=== PATIENT | male | born 1970 | race Two or more races ===

== ENCOUNTER 2022-05-12 02:56 | Emergency (ER) | payer MEDICAID, OTHER ==
[~2022-05-12] VITALS: Ht 165.1 cm; Wt 97.3 kg
[2022-05-12 04:02] VITALS: BP 151/95
[2022-05-12] MEDS ORDERED: AMOX-277 PO (04:27)
== END 2022-05-12 04:50 | disposition home or self-care (01) ==
LOC: ER 02:56
DX: S61.451A Open bite of right hand, initial encounter (principal); S71.151A Open bite, right thigh, initial encounter; I10 Essential (primary) hypertension; Z79.2 Long term (current) use of antibiotics; W54.0XXA Bitten by dog, initial encounter; Y93.89 Activity, other specified; Y92.89 Other specified places as the place of occurrence of the external cause; Y99.8 Other external cause status

== ENCOUNTER 2022-07-31 18:57 | Inpatient (IN) | payer MEDICAID ==
[~2022-07-31] VITALS: Ht 165.1 cm; Wt 96.8 kg
[~2022-07-31 18:57] MED LIST: AMOX-277 PO
[2022-07-31 19:48] VITALS: BP 154/101
[2022-07-31 20:07] LABS: Basophils # (auto) 0.1 10 ^3/uL (0-0.2); Basophils % (auto) 0.6 % (0.0-2.0); Eosinophils # (auto) 0.2 10 ^3/uL (0-0.8); Hematocrit 48.1 % (41.0-53.0); Hemoglobin 16.3 g/dL (13.5-17.5); Lymphocytes # (auto) 1.6 10 ^3/uL (0.4-5.4); Mean Corpuscular Hemoglobin 28.1 pg (28.0-32.0); Mean Corpuscular Volume 82.7 fL (80.0-100.0); Monocytes # (auto) 0.9 10 ^3/uL (0-1.3); Monocytes % (auto) 10.3 % (0.0-12.0); Neutrophils # (auto) 5.6 10 ^3/uL (1.6-8.6); Neutrophils % (auto) 68.1 % (37.0-80.0); Nucleated Red Blood Cells % 0.5 %; Red Blood Cells 5.81 10^6/uL (4.5-5.90); Red Cell Distribution Width 13.8 % (11.8-14.3); White Blood Cell 8.3 10^3/uL (4.4-10.8)
[2022-07-31] MEDS ORDERED: IOHEXOL 300 MG/ML 100ML BOTTLE IJ ONE ×2 (20:15→21:17)
[2022-07-31 20:25] LABS: Albumin 3.8 g/dL (3.4-5.0); Calcium 9.1 mg/dL (8.5-10.1); Potassium 3.6 mmol/L (3.5-5.1)
[2022-07-31 20:29] LABS: BUN/Creatinine Ratio 13.1 (10.0-20.0)
[2022-07-31 20:43] LABS: Bilirubin, Total 0.5 mg/dL (0.2-1.0); Total Protein 7.7 g/dL (6.4-8.2)
[2022-07-31] MEDS ORDERED: SODIUM CHLORIDE 0.9% 1,000 ML IV SCH (23:45)
[2022-07-31] MEDS ORDERED: HYDROcodone-ACET 5/325MG TAB PO PRN (23:45)
[2022-07-31] MEDS ORDERED: ACETAMINOPHEN 325 MG TAB PO PRN (23:45)
[2022-07-31] MEDS ORDERED: MORPHINE SULFATE INJ 2 MG/ml SYRG IV PRN (23:45)
[2022-07-31] MEDS ORDERED: ONDANSETRON HCL 4 MG/2 ML VIAL IV PRN (23:45)
[2022-07-31] MEDS ORDERED: DOCUSATE SOD 100 MG CAP PO PRN (23:45)
[2022-08-01] MEDS ORDERED: metroNIDAZOLE 500MG/100ML 100 ML IV SCH ×2 (06:00→10:00)
[2022-08-01] MEDS ORDERED: SODIUM CHLOR 0.9% PF (SALINE LOCK) 10ML VIAL/SYR IV SCH (06:00)
[2022-08-01] MEDS ORDERED: CIPROFLOXACIN 400MG/200ML 200 ML IV SCH (10:00)
[2022-08-01] MEDS ORDERED: HCTZ 25 MG TAB PO SCH (10:00)
[2022-08-01] MEDS ORDERED: PANTOPRAZOLE 40 MG/10 ML VIAL INJ IV SCH (10:00)
[2022-08-01] MEDS ORDERED: ATORVASTATIN 20 MG TAB PO SCH (22:00)
== END 2022-08-01 00:51 | disposition left against medical advice (07) | DRG 424 ==
LOC: ER 18:57 → OVERFLOW 23:40
PROVIDERS: ADMIT Nurse Practitioner Family; ATTEND Family Medicine
DX: D49.7 Neoplasm of unspecified behavior of endocrine glands and other parts of nervous system (principal); K57.92 Diverticulitis of intestine, part unspecified, without perforation or abscess without bleeding; I10 Essential (primary) hypertension; E78.5 Hyperlipidemia, unspecified; Z53.29 Procedure and treatment not carried out because of patient's decision for other reasons
CPT/HCPCS: 36415; 74177; 80053; 85025; G0378

== ENCOUNTER 2023-09-30 16:17 | Emergency (ER) | payer MEDICAID ==
[~2023-09-30] VITALS: Ht 165.1 cm; Wt 94.6 kg
[~2023-09-30 16:17] MED LIST changes: -AMOX-277 PO; +AMOX875T4 PO
[2023-09-30] MEDS ORDERED: IBUP-1456 PO (19:44)
[2023-09-30] MEDS ORDERED: CEPH500C PO (19:44)
[2023-09-30] MEDS: cefTRIAXone SOD 1,000 MG VL IM ONE (20:33)
[2023-09-30 21:05] VITALS: BP 141/91; PULSE 70; RESP 20; TEMP 98.8; O2SAT 98
== END 2023-09-30 21:05 | disposition home or self-care (01) ==
LOC: ER 16:17
DX: S61.210A Laceration without foreign body of right index finger without damage to nail, initial encounter (principal); I10 Essential (primary) hypertension; Z98.890 Other specified postprocedural states; Z79.899 Other long term (current) drug therapy; W22.8XXA Striking against or struck by other objects, initial encounter; Y93.89 Activity, other specified; Y92.89 Other specified places as the place of occurrence of the external cause; Y99.8 Other external cause status
CPT/HCPCS: 12001; 96372; 99283; J0696